=== PATIENT | female | born 1940 | race Caucasian/White ===

== ENCOUNTER → 2024-06-18 | Outpatient (CLI) | payer OTHER | LOC: M SOG 07:57 | PROVIDERS: ATTEND Physician Assistant | DX: M25.521 Pain in right elbow (principal); M25.511 Pain in right shoulder ==

== ENCOUNTER → 2024-10-22 | Outpatient (CLI) | payer OTHER | LOC: M WHC 12:19 | PROVIDERS: ATTEND Nurse Practitioner Family | DX: Z12.31 Encounter for screening mammogram for malignant neoplasm of breast (principal) ==

== ENCOUNTER → 2025-03-16 | Outpatient (REF) | payer OTHER, MEDICARE | LOC: M SFHCWAGY 16:49 | PROVIDERS: ATTEND Nurse Practitioner Family | DX: N73.9 Female pelvic inflammatory disease, unspecified (principal) ==

== ENCOUNTER 2025-03-23 08:10 | Inpatient (IN) | payer MEDICARE ==
[~2025-03-23] VITALS: Ht 163.8 cm; Wt 65.0 kg
[2025-03-23 08:16] VITALS: TEMP 97
[2025-03-23] MEDS ORDERED: CIME300T91 PO (09:05)
[2025-03-23] MEDS ORDERED: D200CAP PO (09:05)
[2025-03-23] MEDS ORDERED: INDA2.5T2 PO (09:05)
[2025-03-23] MEDS ORDERED: ESCI5SOL3 PO (09:05)
[2025-03-23] MEDS ORDERED: ZOLP-532 PO (09:05)
[2025-03-23] MEDS ORDERED: LEVO50TA5 PO (09:05)
[2025-03-23] MEDS ORDERED: POTA10CA70 PO (09:05)
[2025-03-23 09:06] LABS: BASO % 0.6 % (0.0-1.0); EOS # 0.1 10^3/uL (0.0-0.5); EOS % 1.1 % (0.0-3.0); HEMATOCRIT 47.5 % (36.0-47.0); LYMPH # 2.9 10^3/uL (1.5-5.0); LYMPH % 40.8 % (24.0-44.0); MEAN CORPUSCULAR HEMOGLOBIN 27.9 pg (27.0-33.0); MEAN CORPUSCULAR HGB CONC 33.7 g/dl (32.0-36.5); MEAN CORPUSCULAR VOLUME 82.8 fl (80.0-96.0); MONO # 0.7 10^3/uL (0.0-0.8); MONO % 9.2 % (2.0-8.0); NEUTROPHILS # 3.4 10^3/uL (1.5-8.5); PLATELET COUNT, AUTOMATED 313 10^3/uL (150-450); RED BLOOD COUNT 5.74 10^6/uL (4.00-5.40); WHITE BLOOD COUNT 7.1 10^3/uL (4.0-10.0)
[2025-03-23 09:23] LABS: ALBUMIN 3.8 G/DL (3.2-5.2); BILIRUBIN,DIRECT 0.2 MG/DL (<0.4); BILIRUBIN,TOTAL 0.9 MG/DL (0.3-1.2); CALCIUM LEVEL 11.2 MG/DL (8.3-10.6); CREATININE FOR GFR 0.95 MG/DL (0.55-1.30); GLOMERULAR FILTRATION RATE 59.5 (>32); POTASSIUM SERUM 3.1 MMOL/L (3.5-5.1); TOTAL PROTEIN 7.1 G/DL (5.7-8.2)
[2025-03-23 09:26] LABS: THYROID STIMULATING HORMONE 2.563 uIU/ML (0.55-4.78)
[2025-03-23] MEDS: INDAPAMIDE 1.25MG TABLET PO SCH (11:24)
[2025-03-23 11:33] LABS: KETONE, URINE AUTO RFX NEGATIVE (NEGATIVE); LEUKOCYTE ESTERASE UR AUTO RFX 2+ (NEGATIVE); NITRITE, URINE AUTO RFX NEGATIVE (NEGATIVE); RBC, URINE AUTO RFX 2 /HPF (0-3); SQUAM EPITHELIAL CELL UR AURFX 15 /HPF (0-6); WBC, URINE AUTO RFX 5 /HPF (0-3)
[2025-03-23 12:53] VITALS: BP 201/88
[2025-03-23] MEDS: hydrALAZINE 20MG/ML 1ML VIAL IV STA (12:53)
[2025-03-23] MEDS ORDERED: hydrALAZINE 20MG/ML 1ML VIAL IV SCH (13:00)
[2025-03-23] MEDS ORDERED: atenoloL 25 MG TAB PO ONE (13:00)
[2025-03-23] MEDS ORDERED: FUROSEMIDE 40MG/4ML VIAL IV ONE ×2 (13:30→14:00)
[2025-03-23] MEDS ORDERED: METOPROLOL 5 MG/5 ML VIAL IV ONE (13:30)
[2025-03-23] MEDS ORDERED: zolPIDEM TARTRATE 5 MG TAB PO PRN (13:35)
[2025-03-23] MEDS ORDERED: LEXA1TAB PO (13:41)
[2025-03-23] MEDS ORDERED: AZEL1SPR3 NARES (13:41)
[2025-03-23] MEDS ORDERED: GLUCTAB7 PO (13:41)
[2025-03-23] MEDS ORDERED: ZOLP10TA2 PO (13:41)
[2025-03-23] MEDS ORDERED: ESTR0.1C5 PV (13:41)
[2025-03-23] MEDS ORDERED: OMEG10002 PO (13:41)
[2025-03-23] MEDS ORDERED: ISOSORBIDE DINITRATE 20 MG PO ONE (14:00)
[2025-03-23] MEDS ORDERED: MED REC IN PROGRESS XX SCH (15:40)
[2025-03-23 16:49] VITALS: BP 166/82; O2SAT 98
[2025-03-23] MEDS ORDERED: ISOSORBIDE DINITRATE 20 MG PO SCH (22:00)
[2025-03-24] MEDS ORDERED: LEVOTHYROXINE 50MCG TABLET (0.05MG) PO SCH (06:00)
[2025-03-24] MEDS ORDERED: EUTH25TA PO (07:18)
[2025-03-24] MEDS ORDERED: INDAPAMIDE 1.25MG TABLET PO SCH (09:00)
[2025-03-24] MEDS ORDERED: ESCITALOPRAM OXALATE 10 MG TAB PO SCH (09:00)
== END 2025-03-23 17:52 | disposition left against medical advice (07) | DRG 92 ==
LOC: M ED 08:10 → M ED INP 12:46 → MERGE 12:46
PROVIDERS: ADMIT General Practice; ATTEND General Practice
DX: R29.6 Repeated falls (principal); E87.3 Alkalosis; R53.1 Weakness; Z74.1 Need for assistance with personal care; S70.02XA Contusion of left hip, initial encounter; W19.XXXA Unspecified fall, initial encounter; E87.6 Hypokalemia; Y92.009 Unspecified place in unspecified non-institutional (private) residence as the place of occurrence of the external cause; I16.0 Hypertensive urgency; I10 Essential (primary) hypertension; D75.1 Secondary polycythemia; F03.90 Unspecified dementia, unspecified severity, without behavioral disturbance, psychotic disturbance, mood disturbance, and anxiety; K21.9 Gastro-esophageal reflux disease without esophagitis; E03.9 Hypothyroidism, unspecified; G47.00 Insomnia, unspecified; F41.9 Anxiety disorder, unspecified; F32.A Depression, unspecified; Z66 Do not resuscitate; R26.89 Other abnormalities of gait and mobility; M17.0 Bilateral primary osteoarthritis of knee; Z79.890 Hormone replacement therapy; Z79.899 Other long term (current) drug therapy; Z88.0 Allergy status to penicillin; Z90.49 Acquired absence of other specified parts of digestive tract

== ENCOUNTER → 2025-05-04 | Outpatient (CLI) | payer MEDICARE ==
[~2025-05-04] MED LIST: AZEL1SPR3 NARES; CIME300T91 PO; D200CAP PO; ESCI5SOL3 PO; ESTR0.1C5 PV; EUTH25TA PO; GLUCTAB7 PO; INDA2.5T2 PO; LEVO50TA5 PO; LEXA1TAB PO; OMEG10002 PO; POTA10CA70 PO; ZOLP-532 PO; ZOLP10TA2 PO
== END ==
LOC: M RAD 11:02
PROVIDERS: ATTEND Nurse Practitioner Family
DX: M79.606 Pain in leg, unspecified (principal)

== ENCOUNTER → 2025-06-01 | Outpatient (CLI) | payer MEDICARE | LOC: M RAD 15:13 | PROVIDERS: ATTEND Nurse Practitioner Family | DX: R41.0 Disorientation, unspecified (principal); I65.23 Occlusion and stenosis of bilateral carotid arteries; E04.2 Nontoxic multinodular goiter; R90.82 White matter disease, unspecified ==

== ENCOUNTER 2025-09-14 12:03 | Inpatient (IN) | payer MEDICARE ==
[~2025-09-14] VITALS: Ht 165.1 cm; Wt 62.2 kg
[~2025-09-14 12:03] MED LIST changes: +ZOLP10TA11 PO; -ZOLP10TA2 PO
[2025-09-14] MEDS ORDERED: ISOVUE-370 76% 100 ML VIAL As Ordered ONE (12:28)
[2025-09-14 12:34] LABS: BASO # 0.0 10^3/uL (0.0-0.2); BASO % 0.2 % (0.0-1.0); EOS # 0.0 10^3/uL (0.0-0.5); EOS % 0.5 % (0.0-3.0); LYMPH # 2.8 10^3/uL (1.5-5.0); LYMPH % 33.0 % (24.0-44.0); MONO # 0.7 10^3/uL (0.0-0.8); MONO % 8.7 % (2.0-8.0); NEUTROPHILS # 4.8 10^3/uL (1.5-8.5); NEUTROPHILS % 57.4 % (36.0-66.0); PLATELET COUNT, AUTOMATED 320 10^3/uL (150-450)
[2025-09-14 12:56] LABS: INR 0.92
[2025-09-14 12:58] LABS: CALCIUM LEVEL 10.2 MG/DL (8.3-10.6); CARBON DIOXIDE LEVEL 29.0 MMOL/L (20-31); CHLORIDE LEVEL 101.0 MMOL/L (98-107); CREATININE FOR GFR 0.91 MG/DL (0.55-1.30); GLOMERULAR FILTRATION RATE 62.2 (>32); POTASSIUM SERUM 3.1 MMOL/L (3.5-5.1); SODIUM LEVEL 142.0 MMOL/L (136-145)
[2025-09-14] MEDS ORDERED: AMLO1TAB24 PO (14:54)
[2025-09-14] MEDS ORDERED: HOME MED LIST COMPLETE! XX SCH (14:55)
[2025-09-14 15:08] VITALS: BP 163/78; O2SAT 99
[2025-09-14] MEDS: POTASSIUM CHLORIDE 10% LIQ 20MEQ/15ML UDC PO ONE ×2 (17:10→20:03)
[2025-09-14] MEDS ORDERED: AZELASTINE 137 MCG NASAL SPY 30 ML PRN (19:45)
[2025-09-14 20:03] VITALS: BP 161/76
[2025-09-14] MEDS: amLODIPine 5 MG TAB PO SCH (20:03)
[2025-09-15] VITALS (9 sets, daily range): BP systolic 127–169; BP diastolic 64–84; TEMP 97–97.7; O2SAT 93–97
[2025-09-15 05:46] LABS: ESTIMATED AVERAGE GLUCOSE 117.0 MG/DL (60-110)
[2025-09-15] MEDS: LEVOTHYROXINE 25 MCG TABLET (0.025MG) PO SCH (06:00)
[2025-09-15 06:01] LABS: CALCIUM LEVEL 9.5 MG/DL (8.3-10.6); CARBON DIOXIDE LEVEL 27.0 MMOL/L (20-31); CHLORIDE LEVEL 105.0 MMOL/L (98-107); CHOLESTEROL LEVEL 314.0 MG/DL (<200); CHOLESTEROL RISK RATIO 5.52 (<5); CREATININE FOR GFR 0.83 MG/DL (0.55-1.30); GLOMERULAR FILTRATION RATE 69.5 (>32); LDL CHOLESTEROL 227.8 MG/DL (<100); MAGNESIUM LEVEL 1.9 MG/DL (1.8-2.4); NON-HDL-C 257.2 MG/DL; POTASSIUM SERUM 2.9 MMOL/L (3.5-5.1); SODIUM LEVEL 145.0 MMOL/L (136-145); TRIGLYCERIDES LEVEL 147.0 MG/DL (<150)
[2025-09-15] MEDS: POTASSIUM CHLORIDE 10% LIQ 20MEQ/15ML UDC PO ONE ×2 (07:00→10:23)
[2025-09-15] MEDS: ASPIRIN 81 MG CHEWABLE TABLET PO SCH (10:21)
[2025-09-15] MEDS: OMEGA-3 1000 MG CAPSULE PO SCH (10:22)
[2025-09-15] MEDS: POTASSIUM CHLORIDE 10MEQ SR TABLET PO SCH (10:22)
[2025-09-15] MEDS: ESCITALOPRAM OXALATE 10 MG TABLET PO SCH (10:23)
[2025-09-15] MEDS ORDERED: ASPI81CH8 PO (14:20)
[2025-09-15] MEDS ORDERED: EZET10TA57 PO (14:20)
== END 2025-09-15 16:12 | disposition home or self-care (01) | DRG 65 ==
LOC: M ED 12:03 → M ED INP 16:11 → M PCU 23:55
PROVIDERS: ADMIT Student in an Organized Health Care Education/Training Program; ATTEND Student in an Organized Health Care Education/Training Program
PROC: B246ZZZ Ultrasonography of Right and Left Heart (ICD-10-PCS; principal; 2025-09-15)
DX: I63.212 Cerebral infarction due to unspecified occlusion or stenosis of left vertebral artery (principal); G81.91 Hemiplegia, unspecified affecting right dominant side; R47.01 Aphasia; R29.810 Facial weakness; R47.81 Slurred speech; Z66 Do not resuscitate; F03.90 Unspecified dementia, unspecified severity, without behavioral disturbance, psychotic disturbance, mood disturbance, and anxiety; E04.1 Nontoxic single thyroid nodule; I10 Essential (primary) hypertension; E78.5 Hyperlipidemia, unspecified; K21.9 Gastro-esophageal reflux disease without esophagitis; M19.90 Unspecified osteoarthritis, unspecified site; F41.9 Anxiety disorder, unspecified; F32.A Depression, unspecified; K59.09 Other constipation; E03.9 Hypothyroidism, unspecified; E87.6 Hypokalemia; Z79.890 Hormone replacement therapy; Z79.899 Other long term (current) drug therapy; Z88.0 Allergy status to penicillin